=== PATIENT | female | born 1990 | race Caucasian/White ===

== ENCOUNTER 2017-05-18 20:02 | Emergency (ER) | payer OTHER ==
[~2017-05-18] VITALS: Ht 165.1 cm; Wt 59.6 kg
[~2017-05-18 20:02] MED LIST: ADDERALL20 MG PO; BENADRYL25 MG PO; NUVARING VAGIN1 EACH VG; TRILEPTAL; WELLBUTRIN SR150 MG PO
[2017-05-18 21:10] LABS: HEMATOCRIT 37.1 % (36.0-46.0); MCH 30.2 PG (29.0-34.0); MCHC 33.4 G/DL (30.0-36.0); MCV 90.3 FL (83-99); MEAN PLAT.VOLUME 9.7 uM^3 (9.5-12.4); PLATELET COUNT 244 K/uL (156-360); RBC DIS.WIDTH-CV 12.8 % (11.8-14.6); RBC DIS.WIDTH-SD 42.5 % (39-53); RED BLOOD COUNT 4.11 M/uL (3.80-5.20); WHITE BLOOD COUNT 13.7 K/uL (4.1-10.2)
[2017-05-18 21:18] LABS: CHLORIDE 105 mEq/L (99-109); POTASSIUM 3.7 mEq/L (3.7-5.4); SODIUM 138 mEq/L (136-147)
[2017-05-18 21:20] LABS: GLUCOSE 94 mg/dL (70-99)
[2017-05-18 21:21] LABS: ANION GAP 8 MEQ/L (2-14)
[2017-05-18 21:24] LABS: GFR ESTIMATE (CALCULATED) > 59 mL/min/; UREA NITROGEN (BUN) 14 mg/dL (9-23)
[2017-05-18 21:30] LABS: ADD MIUA? YES; BILIRUBIN NEGATIVE; BLOOD MODERATE; COLOR YELLOW ((YELLOW)); GLUCOSE (STRIP) NEGATIVE; KETONES NEGATIVE; LEUKOCYTES NEGATIVE; NITRITE NEGATIVE; PROTEIN (STRIP) NEGATIVE; SPECIFIC GRAVITY 1.013 (1.000-1.030); UROBILINOGEN 0.2 MG/DL (0.2-1.0)
[2017-05-18 22:08] LABS: AMORPHOUS URATES CRYSTALS 1+; BACTERIA 1+ /HPF; CASTS NONE SEEN /LPF; CRYSTALS PRESENT; EPITHELIAL CELLS 1+ /HPF; MUCUS RARE /LPF; RED BLOOD CELLS 0-5 /HPF (0-5); UCUL ADDED? NO; WHITE BLOOD CELLS 0-5 /HPF (0-5)
[2017-05-18] MEDS ORDERED: ZOFRAN ODT4 MG PO (22:22)
[2017-05-18 22:33] VITALS: BP 121/77
== END 2017-05-18 22:33 | disposition home or self-care (01) ==
LOC: EME 20:02
PROVIDERS: Physician Assistant
PROC: 3E0234Z Introduction of Serum, Toxoid and Vaccine into Muscle, Percutaneous Approach (ICD-10-PCS; principal; 2017-05-18)
DX: O20.0 Threatened abortion (principal); O21.0 Mild hyperemesis gravidarum; Z3A.01 Less than 8 weeks gestation of pregnancy; O99.341 Other mental disorders complicating pregnancy, first trimester; F32.9 Major depressive disorder, single episode, unspecified; Z87.891 Personal history of nicotine dependence; O36.0910 Maternal care for other rhesus isoimmunization, first trimester, not applicable or unspecified
CPT/HCPCS: 76801; 80048; 81003; 85027; 86850; 86900; 86901; 99281; 99284; J2788

== ENCOUNTER 2017-08-04 15:26 | Emergency (ER) | payer OTHER ==
[~2017-08-04] VITALS: Ht 165.1 cm; Wt 62.0 kg
[~2017-08-04 15:26] MED LIST changes: +ZOFRAN ODT4 MG PO
[2017-08-04 16:14] LABS: MCH 30.8 PG (29.0-34.0); MCHC 33.5 G/DL (30.0-36.0); MCV 91.9 FL (83-99); MEAN PLAT.VOLUME 9.4 uM^3 (9.5-12.4); PLATELET COUNT 245 K/uL (156-360); RBC DIS.WIDTH-CV 12.4 % (11.8-14.6); WHITE BLOOD COUNT 12.3 K/uL (4.1-10.2)
[2017-08-04 16:27] LABS: CHLORIDE 106 mEq/L (99-109); POTASSIUM 3.6 mEq/L (3.7-5.4); SODIUM 138 mEq/L (136-147)
[2017-08-04 16:29] LABS: GLUCOSE 83 mg/dL (70-99)
[2017-08-04 16:30] LABS: ANION GAP 8 MEQ/L (2-14)
[2017-08-04 16:31] LABS: TOTAL BILIRUBIN 0.5 mg/dL (0.0-1.0)
[2017-08-04 16:33] LABS: ALKALINE PHOSPHATASE 51 IU/L (3-129); GFR ESTIMATE (CALCULATED) > 59 mL/min/
[2017-08-04 16:34] LABS: UREA NITROGEN (BUN) 13 mg/dL (9-23)
[2017-08-04 17:05] LABS: QUANTITATIVE HCG 16289.9 MIU/ML
[2017-08-04 18:20] LABS: ADD MIUA? NO; BILIRUBIN NEGATIVE; BLOOD NEGATIVE; COLOR STRAW ((YELLOW)); GLUCOSE (STRIP) NEGATIVE; KETONES NEGATIVE; LEUKOCYTES NEGATIVE; NITRITE NEGATIVE; PROTEIN (STRIP) NEGATIVE; SPECIFIC GRAVITY 1.004 (1.000-1.030); UCUL ADDED? NO; UROBILINOGEN 0.2 MG/DL (0.2-1.0)
[2017-08-04 20:00] VITALS: BP 104/62
== END 2017-08-04 20:05 | disposition home or self-care (01) ==
LOC: EME 15:26
DX: O20.0 Threatened abortion (principal); Z3A.18 18 weeks gestation of pregnancy; O99.342 Other mental disorders complicating pregnancy, second trimester; F32.9 Major depressive disorder, single episode, unspecified; F90.9 Attention-deficit hyperactivity disorder, unspecified type; F41.9 Anxiety disorder, unspecified; Z87.891 Personal history of nicotine dependence
CPT/HCPCS: 76805; 80053; 81003; 84702; 85027; 86900; 86901; 99281; 99285

== ENCOUNTER 2017-12-04 05:24 | Outpatient (CLI) | payer OTHER ==
[~2017-12-04 05:24] MED LIST changes: +THRIVE
[2017-12-04 06:04] VITALS: BP 119/63
[2017-12-04 07:06] VITALS: BP 109/63
[2017-12-04 07:47] LABS: HEMATOCRIT 34.3 % (36.0-46.0); HEMOGLOBIN 11.4 G/DL (11.9-15.5); MCH 29.7 PG (29.0-34.0); MCHC 33.2 G/DL (30.0-36.0); MCV 89.3 FL (83-99); PLATELET COUNT 241 K/uL (156-360); RBC DIS.WIDTH-CV 12.2 % (11.8-14.6); RBC DIS.WIDTH-SD 39.7 % (39-53); RED BLOOD COUNT 3.84 M/uL (3.80-5.20); WHITE BLOOD COUNT 13.6 K/uL (4.1-10.2)
[2017-12-04 07:59] LABS: AMPHETAMINE NEGATIVE (500 ng/mL); BARBITURATES NEGATIVE (200 ng/mL); BENZODIAZEPINES NEGATIVE (150 ng/mL); BUPRENORPHINE NEGATIVE (10 ng/mL); COCAINE NEGATIVE (150 ng/mL); METHADONE NEGATIVE (200 ng/mL); METHAMPHETAMINE NEGATIVE (500 ng/mL); OPIATES (MORPHINE) NEGATIVE (100 ng/mL); OXYCODONE NEGATIVE (100 ng/mL); PHENCYCLIDINE NEGATIVE (25 ng/mL); PROPOXYPHENE NEGATIVE (300 ng/mL); THC CANNABINOIDS NEGATIVE (50 ng/mL); TRICYCLIC ANTIDEPRESSANTS NEGATIVE (300 ng/mL)
[2017-12-04 11:33] LABS: BASOPHIL (%) 0.3 % (0-1); EOSINOPHIL (%) 0.7 % (0-5); EOSINOPHIL COUNT 0.1 K/uL (0-0.3); IMMATURE GRANULOCYTE (%) 0.9 % (0.0-0.7); LYMPHOCYTE (%) 20.9 % (15-42); LYMPHOCYTE COUNT 2.9 K/uL (1.0-2.8); MONOCYTE (%) 8.2 % (3-12); MONOCYTE COUNT 1.1 K/uL (0-0.8); NEUTROPHIL COUNT 9.4 K/uL (1.8-6.4)
[2017-12-04 12:52] VITALS: BP 103/54
[2017-12-04] MEDS ORDERED: PRENATAL TABLE1 EAC3 PO (14:44)
[2017-12-05] MEDS ORDERED: PRENATAL TABLE1 EACH PO (13:16)
== END 2017-12-04 15:26 | disposition home or self-care (01) ==
LOC: LDRP-OP 05:24 → 2WEST 05:25 → LDRP-OP 02-08 15:35
PROVIDERS: Advanced Practice Midwife
DX: O47.03 False labor before 37 completed weeks of gestation, third trimester (principal); O34.219 Maternal care for unspecified type scar from previous cesarean delivery; O46.8X3 Other antepartum hemorrhage, third trimester; O99.343 Other mental disorders complicating pregnancy, third trimester; F41.9 Anxiety disorder, unspecified; F90.9 Attention-deficit hyperactivity disorder, unspecified type; O26.893 Other specified pregnancy related conditions, third trimester; Z67.91 Unspecified blood type, Rh negative; Z3A.35 35 weeks gestation of pregnancy
CPT/HCPCS: 59025; 76805; 85025; 85027; 86850; 86870; 86900; 86901; 87081; 87653; G0378; J0702; J2790; J7120

== ENCOUNTER 2017-12-05 12:50 | Outpatient (CLI) | payer OTHER ==
[~2017-12-05] VITALS: Ht 165.1 cm; Wt 69.0 kg
[~2017-12-05 12:50] MED LIST changes: +PRENATAL TABLE1 EAC3 PO
[2017-12-05 13:03] VITALS: BP 116/61
[2017-12-05] MEDS ORDERED: PRENATAL TABLE1 EACH PO (13:16)
== END 2017-12-05 17:40 | disposition home or self-care (01) ==
LOC: LDRP-OP 12:50 → 2WEST 12:51 → LDRP-OP 02-08 15:32
DX: O47.03 False labor before 37 completed weeks of gestation, third trimester (principal); O43.893 Other placental disorders, third trimester; O34.219 Maternal care for unspecified type scar from previous cesarean delivery; O26.893 Other specified pregnancy related conditions, third trimester; Z67.91 Unspecified blood type, Rh negative; Z3A.35 35 weeks gestation of pregnancy
CPT/HCPCS: 59025; 76805; G0378

== ENCOUNTER 2017-12-24 00:39 | Outpatient (CLI) | payer OTHER ==
[~2017-12-24 00:39] MED LIST changes: +PRENATAL TABLE1 EACH PO
[2017-12-24 00:52] VITALS: BP 120/72
== END 2017-12-24 01:20 | disposition home or self-care (01) ==
LOC: LDRP-OP 00:39 → 2WEST 00:40 → LDRP-OP 02-08 18:37
DX: O26.893 Other specified pregnancy related conditions, third trimester (principal); O34.219 Maternal care for unspecified type scar from previous cesarean delivery; Z3A.37 37 weeks gestation of pregnancy
CPT/HCPCS: 59025; G0378

== ENCOUNTER 2018-01-02 22:53 | Outpatient (CLI) | payer OTHER ==
[~2018-01-02] VITALS: Ht 165.1 cm; Wt 74.1 kg
[2018-01-02 23:06] VITALS: BP 119/74
[2018-01-02 23:59] LABS: APPEARANCE CLEAR ((CLEAR)); BILIRUBIN NEGATIVE; BLOOD NEGATIVE; COLOR STRAW ((YELLOW)); GLUCOSE (STRIP) NEGATIVE; KETONES NEGATIVE; LEUKOCYTES NEGATIVE; NITRITE NEGATIVE; PROTEIN (STRIP) NEGATIVE; SPECIFIC GRAVITY 1.005 (1.000-1.030); UCUL ADDED? NO; UROBILINOGEN 0.2 MG/DL (0.2-1.0)
[2018-01-03 00:35] VITALS: BP 108/62
== END 2018-01-03 01:58 | disposition home or self-care (01) ==
LOC: LDRP-OP 22:53 → 2WEST 22:54 → LDRP-OP 02-08 01:40
PROVIDERS: Advanced Practice Midwife
DX: O47.1 False labor at or after 37 completed weeks of gestation (principal); O98.813 Other maternal infectious and parasitic diseases complicating pregnancy, third trimester; B37.9 Candidiasis, unspecified; Z3A.39 39 weeks gestation of pregnancy; O34.219 Maternal care for unspecified type scar from previous cesarean delivery
CPT/HCPCS: 59025; 81003; G0378

== ENCOUNTER 2018-01-08 09:22 | Inpatient (IN) | payer OTHER ==
[2018-01-08] VITALS (30 sets, daily range): BP systolic 98–141; BP diastolic 54–79
[~2018-01-08] VITALS: Ht 165.1 cm; Wt 75.0 kg
[2018-01-08 10:13] LABS: BASOPHIL (%) 0.2 % (0-1); EOSINOPHIL (%) 0.3 % (0-5); EOSINOPHIL COUNT 0.1 K/uL (0-0.3); HEMATOCRIT 36.3 % (36.0-46.0); IMMATURE GRANULOCYTE (%) 0.9 % (0.0-0.7); LYMPHOCYTE (%) 12.2 % (15-42); LYMPHOCYTE COUNT 2.4 K/uL (1.0-2.8); MCH 28.3 PG (29.0-34.0); MCHC 33.1 G/DL (30.0-36.0); MCV 85.6 FL (83-99); MONOCYTE (%) 7.5 % (3-12); MONOCYTE COUNT 1.5 K/uL (0-0.8); NEUTROPHIL (%) 78.9 % (45-76); NEUTROPHIL COUNT 15.4 K/uL (1.8-6.4); PLATELET COUNT 248 K/uL (156-360); RBC DIS.WIDTH-CV 13.2 % (11.8-14.6); RBC DIS.WIDTH-SD 40.8 % (39-53); RED BLOOD COUNT 4.24 M/uL (3.80-5.20); WHITE BLOOD COUNT 19.5 K/uL (4.1-10.2)
[2018-01-08 10:38] LABS: AMPHETAMINE NEGATIVE (500 ng/mL); BARBITURATES NEGATIVE (200 ng/mL); BENZODIAZEPINES NEGATIVE (150 ng/mL); BUPRENORPHINE NEGATIVE (10 ng/mL); COCAINE NEGATIVE (150 ng/mL); METHADONE NEGATIVE (200 ng/mL); METHAMPHETAMINE NEGATIVE (500 ng/mL); OPIATES (MORPHINE) NEGATIVE (100 ng/mL); OXYCODONE NEGATIVE (100 ng/mL); PHENCYCLIDINE NEGATIVE (25 ng/mL); PROPOXYPHENE NEGATIVE (300 ng/mL); THC CANNABINOIDS NEGATIVE (50 ng/mL); TRICYCLIC ANTIDEPRESSANTS NEGATIVE (300 ng/mL)
[2018-01-09 07:32] LABS: BASOPHIL (%) 0.2 % (0-1); BASOPHIL COUNT 0.1 K/uL (0-0.1); EOSINOPHIL (%) 0.1 % (0-5); HEMATOCRIT 32.7 % (36.0-46.0); HEMOGLOBIN 10.7 G/DL (11.9-15.5); LYMPHOCYTE (%) 9.7 % (15-42); LYMPHOCYTE COUNT 2.4 K/uL (1.0-2.8); MCH 28.7 PG (29.0-34.0); MCHC 32.7 G/DL (30.0-36.0); MCV 87.7 FL (83-99); MONOCYTE (%) 7.1 % (3-12); MONOCYTE COUNT 1.7 K/uL (0-0.8); NEUTROPHIL (%) 81.9 % (45-76); NEUTROPHIL COUNT 20.1 K/uL (1.8-6.4); PLATELET COUNT 240 K/uL (156-360); RBC DIS.WIDTH-CV 13.6 % (11.8-14.6); RBC DIS.WIDTH-SD 43.5 % (39-53); RED BLOOD COUNT 3.73 M/uL (3.80-5.20); WHITE BLOOD COUNT 24.6 K/uL (4.1-10.2)
[2018-01-09 07:35] VITALS: BP 131/76
[2018-01-09 15:49] VITALS: BP 109/58
[2018-01-09 23:45] VITALS: BP 97/62
[2018-01-10 07:29] VITALS: BP 100/61
[2018-01-10] MEDS ORDERED: IBUPROFEN800 MG PO (08:31)
[2018-01-10 14:39] VITALS: BP 115/74
== END 2018-01-10 21:35 | disposition home or self-care (01) | DRG 775 ==
LOC: LDRP-OP 09:22 → 2WEST 09:23 → LDRP-OP 02-08 02:06
PROVIDERS: Advanced Practice Midwife
PROC: 3E0R3BZ Introduction of Anesthetic Agent into Spinal Canal, Percutaneous Approach (ICD-10-PCS; principal; 2018-01-08)
PROC: 00HU33Z Insertion of Infusion Device into Spinal Canal, Percutaneous Approach (ICD-10-PCS; principal; 2018-01-08)
PROC: 10E0XZZ Delivery of Products of Conception, External Approach (ICD-10-PCS; principal; 2018-01-08)
PROC: 0KQM0ZZ Repair Perineum Muscle, Open Approach (ICD-10-PCS; principal; 2018-01-08)
DX: O70.1 Second degree perineal laceration during delivery (principal); O99.324 Drug use complicating childbirth; F12.10 Cannabis abuse, uncomplicated; Z37.0 Single live birth; Z3A.40 40 weeks gestation of pregnancy; O48.0 Post-term pregnancy; O34.211 Maternal care for low transverse scar from previous cesarean delivery
CPT/HCPCS: 85025; 86850; 86870; 86900; 86901; 86905; 86920; 87070; 87075; 87076; 87185; 87205; C1755; J3010; J7120